=== PATIENT | female | born 1975 | race Caucasian/White ===

== ENCOUNTER 2017-04-24 19:29 | Emergency (ER) | payer BC ==
[2017-04-24 20:01] VITALS: BP 139/77
--- NOTE | 2017-04-24 20:03 | UC ---
Knee Pain HPI - HPI Summary HPI Summary: 41 yo female with right popliteal pain and calf swelling x days has had vein surgery on that side (about 2 yrs ago) Her mom had had DVTs no CP or SOB - History of Current Complaint Chief Complaint: UCLowerExtremity Stated Complaint: RT KNEE PAIN Time Seen by Provider: 04/24/17 20:02 Hx Last Menstrual Period: 04/09/17 Onset/Duration: Gradual Onset, Lasting Days Severity Initially: Mild Severity Currently: Moderate Pain Intensity: 6 Pain Scale Used: 0-10 Numeric Character: Sharp, Dull, Aching Alleviating Factor(s): Nothing Associated Signs And Symptoms: Positive: Swelling Able to Bear Weight: Yes - Allergies/Home Medications Allergies/Adverse Reactions: Allergies Allergy/AdvReac Type Severity Reaction Status Date / Time Influenza Vaccines Allergy Severe Eyes Verified 04/24/17 19:55 Itchy/Swollen/Red/Watery Morphine Allergy Severe Swelling Verified 04/24/17 19:55 Nalbuphine [From Nubain] Allergy Severe Itching Verified 04/24/17 19:55 Home Medications: Home Medications Ibuprofen TAB* [Motrin TAB* 800 MG] 800 mg PO Q8H PRN 04/24/17 [History Confirmed 04/24/17] LevoCETirizine TAB (NF) [Xyzal TAB (NF)] 5 mg PO DAILY 04/24/17 [History Confirmed 04/24/17] Sumatriptan [Imitrex] 5 mg ONE NARE SEE INSTRUCTIONS PRN 04/24/17 [History Confirmed 04/24/17] Verapamil HCl [Verapamil HCl Sr] 180 mg PO DAILY 04/24/17 [History Confirmed ] PMH/Surg Hx/FS Hx/Imm Hx Previously Healthy: Yes Cardiovascular History: Other Other Cardiovascular History: had had superficial thrombopheblitis Neurological History: Migraine - Surgical History Surgical History: Yes Surgery Procedure, Year, and Place: Fallopian tubes removed; upper right leg vein removed. Gall bladder. T&A. C-sections X2 - Family History Known Family History: Positive: Hypertension, Other - DVT - Social History Alcohol Use: None Substance Use Type: None Smoking Status (MU): Never Smoked Tobacco - Immunization History Most Recent Influenza Vaccination: Allergic Review of Systems Constitutional: Negative Skin: Negative Eyes: Negative ENT: Negative Respiratory: Negative Cardiovascular: Negative Gastrointestinal: Negative Genitourinary: Negative Motor: Negative Neurovascular: Negative Musculoskeletal: Myalgia Neurological: Negative Psychological: Negative Is Patient Immunocompromised?: No All Other Systems Reviewed And Are Negative: Yes Physical Exam Triage Information Reviewed: Yes Appearance: Well-Appearing, No Pain Distress, Well-Nourished Vital Signs: Initial Vital Signs Temp 98.4 F 04/24/17 19:51 Pulse 78 04/24/17 19:51 Resp 16 04/24/17 19:51 BP 139/77 04/24/17 19:51 Pulse Ox 100 04/24/17 19:51 Eyes: Positive: Conjunctiva Clear ENT: Positive: Hearing grossly normal. Negative: Nasal congestion, Nasal drainage, Tonsillar exudate, Trismus, Muffled/hoarse voice Neck: Positive: Supple, Nontender, No Lymphadenopathy Respiratory: Positive: Lungs clear, Normal breath sounds, No respiratory distress, No accessory muscle use Cardiovascular: Positive: RRR, No Murmur Musculoskeletal: Positive: Other: - see image Neurological: Positive: Alert Psychological: Positive: Normal Response To Family Skin Exam: Normal Knee Pain Course/Dx - Course Course Of Treatment: advise pt of my concern she may have a DVT. she refused EMS transfer and signed AMA. I called Dr. Francois at [facility] and he accepted patient - Differential Dx/Diagnosis Provider Diagnoses: right leg pain and swelling-? DVT Discharge - Discharge Plan Condition: Guarded Disposition: TRANS HIGHER LVL OF CARE FAC Referrals: Kt CARDONA,Wayne Vasques [Medical Doctor] - Images Front/Back of Body, Lg ([place]): 1 - 10 cm below tibial tubercle. R50 L46cm 2 - 20 cm below tibial tubercle. R40 L33cm
== END 2017-04-24 20:39 | disposition short-term general hospital (02) ==
LOC: UCCORT 19:29
DX: M79.605 Pain in left leg (principal); R60.0 Localized edema; G43.909 Migraine, unspecified, not intractable, without status migrainosus; Z86.72 Personal history of thrombophlebitis; Z90.49 Acquired absence of other specified parts of digestive tract; Z88.5 Allergy status to narcotic agent; Z88.7 Allergy status to serum and vaccine
CPT/HCPCS: 99212; G0463

== ENCOUNTER 2017-11-23 15:38 | Emergency (ER) | payer BC ==
[2017-11-23 16:11] VITALS: BP 138/92
--- NOTE | 2017-11-23 17:26 | UC ---
Throat Pain/Nasal Remy HPI - HPI Summary HPI Summary: Patient has had sinus congestion and headache for one week. Patient's son was diagnosed with strep pharyngitis last night - History of Current Complaint Chief Complaint: UCGeneralIllness Stated Complaint: HEADACHE,SORE THROAT Time Seen by Provider: 11/23/17 17:15 Hx Obtained From: Patient Hx Last Menstrual Period: 11/23/17 ?: No Onset/Duration: Gradual Onset, Lasting Days - 7, Still Present Severity: Mild Pain Scale Used: 0-10 Numeric Cough: None Associated Signs & Symptoms: Positive: Sinus Discomfort, Other - Nasal congestion and cough - Allergies/Home Medications Allergies/Adverse Reactions: Allergies Allergy/AdvReac Type Severity Reaction Status Date / Time morphine Allergy Severe Swelling Verified 11/23/17 16:42 nalbuphine [From Nubain] Allergy Severe Swelling Verified 11/23/17 16:42 Influenza Virus Vaccines Allergy Intermediate watery/itchy Verified 11/23/17 16: 42 eyes Home Medications: Home Medications Desloratidine (NF) [Clarinex (NF)] 5 mg PO BEDTIME 11/23/17 [History Confirmed 11/23/17] PMH/Surg Hx/FS Hx/Imm Hx Previously Healthy: No Neurological History: Migraine - Surgical History Surgical History: Yes Surgery Procedure, Year, and Place: Fallopian tubes removed; upper right leg vein removed. Gall bladder. T&A. C-sections X2 - Family History Known Family History: Positive: None, Hypertension, Other - DVT - Social History Occupation: Employed Full-time Lives: With Family Alcohol Use: None Substance Use Type: None Smoking Status (MU): Never Smoked Tobacco - Immunization History Most Recent Influenza Vaccination: Allergic Review of Systems Constitutional: Negative Skin: Negative Eyes: Negative ENT: Other - nasal drainage and congestion Respiratory: Cough Cardiovascular: Negative Gastrointestinal: Negative Genitourinary: Negative Motor: Negative Neurovascular: Negative Musculoskeletal: Negative Neurological: Negative Psychological: Negative Is Patient Immunocompromised?: No All Other Systems Reviewed And Are Negative: Yes Physical Exam Triage Information Reviewed: Yes Appearance: Well-Appearing, No Pain Distress, Well-Nourished Vital Signs: Initial Vital Signs Temp 98.7 F 11/23/17 16:05 Pulse 82 11/23/17 16:05 Resp 17 11/23/17 16:05 BP 138/92 04/19/18 16:05 Pulse Ox 99 11/23/17 16:05 Vital Signs Reviewed: Yes Eye Exam: Normal Eyes: Positive: Conjunctiva Clear ENT Exam: Normal ENT: Positive: Normal ENT inspection, Hearing grossly normal, Pharynx normal, Nasal congestion, Nasal drainage, Uvula midline. Negative: TMs normal, Tonsillar swelling, Tonsillar exudate, Trismus, Muffled voice, Hoarse voice, Sinus tenderness Dental Exam: Normal Neck exam: Normal Neck: Positive: Supple, Nontender Respiratory Exam: Normal Respiratory: Positive: Chest non-tender, Lungs clear, Normal breath sounds, No respiratory distress, No accessory muscle use Cardiovascular Exam: Normal Cardiovascular: Positive: RRR, No Murmur, Pulses Normal, Brisk Capillary Refill Musculoskeletal Exam: Normal Musculoskeletal: Positive: Strength Intact, ROM Intact, No Edema Neurological Exam: Normal Neurological: Positive: Alert, Muscle Tone Normal Psychological Exam: Normal Skin Exam: Normal Diagnostics - Laboratory Diagnostic Studies Completed/Ordered: Influenza A/influenza B is negative, rapid strep is negative Throat Pain/Nasal Course/Dx - Course Assessment/Plan: Tylenol ibuprofen increase fluids, Mucinex D Flonase nasal spray follow with PCP when necessary - Differential Dx/Diagnosis Provider Diagnoses: Upper respiratory infection nasal congestion Discharge - Sign-Out/Discharge Documenting (check all that apply): Discharge - Discharge Plan Condition: Stable Disposition: HOME Prescriptions: Amoxicillin/Clavulanate TAB* [Augmentin TAB 875*] 875 mg PO BID #20 tab Patient Education Materials: Sinusitis (ED) Referrals: Jorge Engel MD [Primary Care Provider] - If Needed - Billing Disposition and Condition Condition: STABLE Disposition: HOME
== END 2017-11-23 18:09 | disposition home or self-care (01) ==
LOC: UCCORT 15:38
DX: J06.9 Acute upper respiratory infection, unspecified (principal); R09.81 Nasal congestion; Z88.5 Allergy status to narcotic agent; Z88.7 Allergy status to serum and vaccine; Z88.8 Allergy status to other drugs, medicaments and biological substances
CPT/HCPCS: 87502; 87651; 99212; G0463

== ENCOUNTER 2018-01-27 07:57 | Emergency (ER) | payer BC ==
[2018-01-27 08:14] VITALS: BP 134/72
--- NOTE | 2018-01-27 08:17 | UC ---
Respiratory Complaint HPI - HPI Summary HPI Summary: 42 year female with cough . "I think I have bronchitis"- cough x2 weeks- last couple days cough has gotten more productive. Also c/o feeling more tired and fever on/off. No otc cold meds taken. She has bad allergies and they are flared up as well. has had yellow phlegm now . 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 Hx Last Menstrual Period: Onset/Duration: Gradual Onset Timing: Constant Severity Initially: Mild Severity Currently: Moderate Pain Intensity: 0 Character: Cough: Productive Aggravating Factors: Nothing Alleviating Factors: Nothing Associated Signs And Symptoms: Positive: Fever, Chills, URI, Nasal Congestion, Sinus Discomfort - Allergies/Home Medications Allergies/Adverse Reactions: Allergies Allergy/AdvReac Type Severity Reaction Status Date / Time morphine Allergy Severe Swelling Verified 01/27/18 08:06 nalbuphine [From Nubain] Allergy Severe Swelling Verified 01/27/18 08:06 Influenza Virus Vaccines Allergy Intermediate watery/itchy Verified 01/27/18 08: 06 eyes Home Medications: Home Medications Levocetirizine Dihydrochloride [Xyzal] 1 tab BEDTIME 01/27/18 [History Confirmed 01/27/18] Verapamil SR TAB* [Calan Sr TAB*] 1 tab QPM 01/27/18 [History Confirmed 01/27/18 ] PMH/Surg Hx/FS Hx/Imm Hx Previously Healthy: Yes Cardiovascular History: Hypertension Respiratory History: Bronchitis - Surgical History Surgical History: Yes Surgery Procedure, Year, and Place: Fallopian tubes removed; upper right leg vein removed. Gall bladder. T&A. C-sections X2 - Family History Known Family History: Positive: None, Hypertension, Other - DVT - Social History Occupation: Employed Full-time - teacher Lives: With Family Alcohol Use: None Substance Use Type: None Smoking Status (MU): Never Smoked Tobacco - Immunization History Most Recent Influenza Vaccination: Allergic Most Recent Tetanus Shot: UTD Review of Systems Constitutional: Fever, Chills, Fatigue ENT: Sore Throat, Ear Ache, Nasal Discharge, Sinus Congestion, Sinus Pain/ Tenderness Respiratory: Cough Is Patient Immunocompromised?: No All Other Systems Reviewed And Are Negative: Yes Physical Exam Triage Information Reviewed: Yes Appearance: Well-Appearing, No Pain Distress, Well-Nourished Vital Signs: Initial Vital Signs Temp 98.7 F 01/27/18 08:08 Pulse 82 01/27/18 08:08 Resp 16 01/27/18 08:08 BP 134/72 01/27/18 08:08 Pulse Ox 100 01/27/18 08:08 Vital Signs Reviewed: Yes Eye Exam: Normal ENT Exam: Normal Dental Exam: Normal Neck exam: Normal Neck: Positive: 1 Respiratory Exam: Normal Cardiovascular Exam: Normal Abdominal Exam: Normal Musculoskeletal Exam: Normal Neurological Exam: Normal Psychological Exam: Normal Skin Exam: Normal UC Diagnostic Evaluation - Laboratory O2 Sat by Pulse Oximetry: 100 Respiratory Course/Dx - Course Course Of Treatment: likely viral / allergy in nature. start benadryl and flonase and if sx not improved or worsen then start antibiotics. she is aware of all SE of antibiotics and will only start if warranted. if any concerns RTO - Differential Dx/Diagnosis Differential Diagnosis/HQI/PQRI: Bronchitis, Laryngitis, Lower Resp Infection, Sinusitis Provider Diagnoses: bronchitis. seasonal allergy Discharge - Sign-Out/Discharge Documenting (check all that apply): Discharge/Admit/Transfer - Discharge Plan Condition: Good Disposition: HOME Prescriptions: Amoxicillin/Clavulanate TAB* [Augmentin TAB 875*] 875 mg PO BID 10 Days #20 tab Fluconazole [Diflucan 150 MG (NF)] 150 mg PO ONCE #1 tab Patient Education Materials: Acute Bronchitis (ED) Referrals: Jorge Engel MD [Primary Care Provider] - 4 Days Additional Instructions: As we discussed your symptoms are likely viral / allergic in nature but since your duration of symptoms have been > 10 days we will offer antibiotics if your symptoms do not improve in the next few days. Continue with your allergy medications and if your symptoms are not improved then you may start the antibiotics. - Billing Disposition and Condition Condition: GOOD Disposition: Home
== END 2018-01-27 08:34 | disposition home or self-care (01) ==
LOC: UCCORT 07:57
DX: J40 Bronchitis, not specified as acute or chronic (principal); J30.2 Other seasonal allergic rhinitis; Z88.5 Allergy status to narcotic agent; Z88.7 Allergy status to serum and vaccine; I10 Essential (primary) hypertension
CPT/HCPCS: 99212; G0463